=== PATIENT | male | born 1995 | race Caucasian/White ===

== ENCOUNTER 2019-07-16 11:29 | Emergency (ER) | payer OTHER ==
--- NOTE | 2019-07-16 11:37 | ERPHSYRPT ---
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 between a metal plate and concrete wall, meatal bleeding controlled, no other injury, ambulatory, no blood thinners, mild to mod ache pain Allergies/Adverse Reactions: Penicillins Allergy (Verified 07/16/19 11:43) Hx Tetanus, Diphtheria Vaccination/Date Given: Yes Hx Influenza Vaccination/Date Given: No Hx Pneumococcal Vaccination/Date Given: No - Past Medical History Pertinent Past Medical History: Yes Respiratory History: Asthma Musculoskeletal History: Other (pectus excavatum) Other Medical History: CONCAVE CHEST, updated 07/17/15 - Past Surgical History Past Surgical History: Yes Other Surgical History: LEFT ARM, JAW - two metal plates in left arm - Social History Smoking Status: Never smoker Exposure to second hand smoke: No Drug Use: none Patient Lives Alone: No - Review of Systems Constitutional: No Fever Respiratory: No Dyspnea Abdominal/Gastrointestinal: No Abdominal Pain Genitourinary Symptoms: No Testicle Pain Musculoskeletal: No Back Pain Neurological: No Dizziness - Nursing Vital Signs Nursing Vital Signs: Initial Vital Signs Temperature 98.2 F 07/16/19 11:32 Pulse Rate 81 07/16/19 11:32 Respiratory Rate 18 07/16/19 11:32 Blood Pressure 141/88 07/16/19 11:32 O2 Sat by Pulse Oximetry 98 07/16/19 11:32 Pain Scale Pain Intensity 9 - Physical Exam General Appearance: no apparent distress Eye Exam: eyes nml inspection Neck Exam: normal inspection Respiratory Exam: No respiratory distress Cardiovascular Exam: regular rate/rhythm Gastrointestinal/Abdomen Exam: soft, No tenderness Male Genital Exam: circumcised, No scrotum tenderness (R), No scrotum tenderness (L), No testicular tenderness (R), No testicular tenderness (L), No hernia mass Extremity Exam: normal inspection Neurologic Exam: alert, oriented x 3, cooperative Skin Exam: other (sts glans of penis w/ blood in meatus and ecchymosis) - Course Nursing assessment & vital signs reviewed: Yes Ordered Tests: Active Orders 24 hr Category Date Time Status Saline Lock STAT Care 07/16/19 11:43 Ordered CBC W DIFF Stat Lab 07/16/19 11:44 Ordered CMP Stat Lab 07/16/19 11:44 Ordered UA W/RFX UR CULTURE Stat Lab 07/16/19 11:44 Uncollected Medication Summary Generic Name Dose Route Start Last Admin Trade Name Freq PRN Reason Stop Dose Admin Sodium Chloride 1,000 mls @ 999 mls/hr 07/16/19 11:44 Sodium Chloride 0.9% 1000 Ml IV 07/16/19 12:44 .Q1H1M STA Discontinued Medications Generic Name Dose Route Start Last Admin Trade Name Freq PRN Reason Stop Dose Admin Morphine Sulfate 4 mg 07/16/19 11:44 Morphine Sulfate 4 Mg Inj IV 07/16/19 11:45 STAT ONE - Progress Progress: unchanged Progress Note: 07/16/19 11:47 consult d/w Dr Marcos [phone] and pt transferred to [facility] for retrograde urethrogram, accepted by Dr Flor - Departure Departure Disposition: Transfer Clinical Impression: Traumatic blister of penis Qualifiers: Encounter type: initial encounter Qualified Code(s): S30.822A - Blister ( nonthermal) of penis, initial encounter Condition: Stable Critical Care Time: No Referrals: DOCTOR,NO FAMILY [Primary Care Provider] -
[2019-07-16 11:43] VITALS: O2SAT 98
[2019-07-16] MEDS ORDERED: Sodium Chloride 0.9% 1000 ML 1,000 ML IV STA (11:44)
[2019-07-16] MEDS ORDERED: MORPHINE SULFATE 4 MG INJ IV ONE (11:44)
[2019-07-16] MEDS ORDERED: Sodium Chloride 0.9% 1000 ML 1,000 ML ONE (12:00)
[2019-07-16] MEDS ORDERED: MORPHINE SULFATE 4 MG INJ ONE (12:00)
[2019-07-16 12:15] VITALS: BP 128/77; PULSE 72
[2019-07-16 12:25] LABS: Appearance SLIGHTLY CLOUDY (CLEAR); Bacteria RARE /HPF (NEGATIVE); Bilirubin NEGATIVE (NEGATIVE); Blood LARGE Ery/ul (0-5); Glucose NEGATIVE (NEGATIVE); Ketones TRACE (NEGATIVE); Leukocyte Esterase NEGATIVE (NEGATIVE); Mucus SLIGHT /HPF (NEGATIVE); Nitrite NEGATIVE (NEGATIVE); Protein,Urine Dip 30 (Negative); Specific Gravity 1.028 (1.005-1.025); Urobilinogen NEGATIVE mg/dL (0-1)
[2019-07-16 12:26] LABS: BASOPHIL % 0.3 % (0.0-0.4); Basophil (Absolute #) 0.02 (0-0.4); Eosinophil % 3.1 % (0.00-5.0); Granulocyte Absolute (ANC) 2.91 (1.4-6.9); Granulocytes % 44.8 % (36.0-66.0); Hematocrit 42.1 % (42-50); Hemoglobin 14.1 gm/dl (12.5-18.0); Lymphocyte (Absolute #) 2.48 (1.0-4.6); Lymphocytes % 38.2 % (24.0-44.0); Mean Cell Volume 90.5 fl (78-100); Mean Corpuscular Hemoglobin 30.3 pg (26-32); Mean Corpuscular Hgb Concent. 33.5 g/dl (32-36); Mean Platelet Volume 10.2 fl (6-9.5); Monocyte (Absolute #) 0.88 (0.0-1.3); Monocytes % 13.6 % (0.0-12.0); Platelet Count 221 K/mm3 (150-450); Red Blood Count 4.65 M/mm3 (4.1-5.6); White Blood Count 6.5 K/mm3 (4.0-10.5)
[2019-07-16 12:27] LABS: RBC >101 /HPF (0-2)
[2019-07-16 12:40] LABS: ALBUMIN 4.6 g/dL (3.5-5.0); ALKALINE PHOSPHATASE 46 U/L (38-126); ANION GAP 13.2 MEQ/L (5-15); BLOOD UREA NITROGEN 17 mg/dL (9-20); CHLORIDE 108 mmol/L (98-107); Calcium 9.3 mg/dL (8.4-10.2); Carbon Dioxide 26 mmol/L (22-30); Creatinine 1 0.91 mg/dL (0.66-1.25); Glucose 98 mg/dL (74-106); Potassium 4.2 mmol/L (3.5-5.1); SGOT/AST 35 U/L (17-59); SGPT/ALT 40 U/L (0-50); SODIUM 142 mmol/L (137-145)
== END 2019-07-16 12:54 | disposition short-term general hospital (02) ==
LOC: ED 11:29
DX: S30.822A Blister (nonthermal) of penis, initial encounter (principal); W23.1XXA Caught, crushed, jammed, or pinched between stationary objects, initial encounter
CPT/HCPCS: 36000; 36415; 80053; 81001; 85025; 87086; 96374; 99285; J2270

== ENCOUNTER 2022-12-05 11:06 | Emergency (ER) | payer OTHER ==
--- NOTE | 2022-12-05 12:21 | ERPHSYRPT ---
- History of Present Illness Source: patient, other () Exam Limitations: no limitations Patient Subjective Stated Complaint: Laceration Triage Nursing Assessment: Patient ambulated back to ED and transferred self to bed. Patient A+O X 3. Patient's skin pink, warm and dry. Patient states he was working on a roof when a razor blade slipped cutting his right hand 1st and 2nd digit. 1st digit noted to have 2 cm laceration and 2nd digit noted to have 0.5cm laceration. Patient complains of pain 5/10 to area. Physician History: 27 yo WM laceration R proximal 1st digit ventral aspect and R 2nd digit on the ventral aspect. Lacerations occurred before arrival at work due to a hand box folder. Pt is L handed and denies other injuries at this time. Tetanus is UTD. Arrived w good hemostasis, good distal capillary return and sensation in all digits, and good radial pulses B. Pt is left handed. 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) Quality: constant Severity of Pain-Max: moderate Severity of Pain-Current: mild Extremities Pain Location: hand: right, thumb: right, 2nd finger: right Allergies/Adverse Reactions: Penicillins Allergy (Verified 12/05/22 11:19) Hx Tetanus, Diphtheria Vaccination/Date Given: Yes Hx Influenza Vaccination/Date Given: No Hx Pneumococcal Vaccination/Date Given: No Immunizations Up to Date: Yes Travel Risk - International Travel Have you traveled outside of the country in past 3 weeks: No - Coronavirus Screening Are you exhibiting any of the following symptoms?: No Close contact with a COVID-19 positive Pt in past 14-21 Days: No - Vaccine Status Have you recieved a Covid-19 vaccination: No - Review of Systems Constitutional: No Symptoms Eyes: No Symptoms Ears, Nose, & Throat: No Symptoms Respiratory: No Symptoms Cardiac: No Symptoms Abdominal/Gastrointestinal: No Symptoms Genitourinary Symptoms: No Symptoms Skin: No Symptoms Neurological: No Symptoms Psychological: No Symptoms Endocrine: No Symptoms Hematologic/Lymphatic: No Symptoms Immunological/Allergic: No Symptoms - Past Medical History Pertinent Past Medical History: Yes Respiratory History: Asthma Musculoskeletal History: Other Other Medical History: CONCAVE CHEST, updated 07/17/15 - Past Surgical History Past Surgical History: Yes Other Surgical History: LEFT ARM, JAW - two metal plates in left arm - Social History Smoking Status: Never smoker Exposure to second hand smoke: No Drug Use: none Patient Lives Alone: No - Nursing Vital Signs Nursing Vital Signs: Initial Vital Signs Temperature 97.6 F 12/05/22 11:21 Pulse Rate 98 H 12/05/22 11:21 Respiratory Rate 18 12/05/22 11:21 Blood Pressure 144/92 12/05/22 11:21 O2 Sat by Pulse Oximetry 95 12/05/22 11:21 Pain Scale Pain Intensity 3 Hypertensive - Physical Exam General Appearance: no apparent distress Eyes, Ears, Nose, Throat Exam: normal ENT inspection, TMs normal, pharynx normal, moist mucous membranes Neck Exam: normal inspection, non-tender, supple, full range of motion, No Brudzinski, No Kernig's, No meningismus, No carotid bruit Cardiovascular/Respiratory Exam: normal breath sounds, regular rate/rhythm, heart sounds normal Abdominal Exam: non-tender, soft Back Exam: normal inspection Shoulder Exam: normal inspection Elbow/Forearm Exam: normal inspection Wrist Exam: normal inspection Hand Exam: laceration (2cm ventral, proximal laceration/good hemostasis/FROM wo difficulty/Good distal capillary return and sensation/Superficial avulsion R 2nd digit between PIP and DIP/Good hemostasis/Good distal capillary return and sensation) DTR - Upper Extremity Exam: bicep (R): 2+, bicep (L): 2+ Neuro/Tendon Exam: normal sensation, normal motor functions, normal tendon functions, responds to pain, no evidence tendon injury, No motor deficit, No sensory deficit Mental Status Exam: alert, oriented x 3, cooperative Skin Exam: normal color, warm, dry SpO2 Interpretation: normal SpO2: 95 O2 Delivery: Room Air Procedures - Laceration/Wound Repair Right Proximal Finger Time of Procedure: 12:18 Wound Location: Right (R proximal, ventral 1st digit) Wound Length (cm): 2 Wound's Depth, Shape: superficial, linear Wound Explored: clean Irrigated: No Hibiclens Prep: Yes Anesthesia: digital block, 1% Lidocaine Volume Anesthetic (ccs): 3 Wound Repaired With: sutures Suture Size/Type: 4-0 (4.0 Ethilon x4) Number of Sutures: 4 Layer Closure?: No Sterile Dressing Applied?: Yes Splint Applied?: No Right Dorsal Finger Time of Procedure: 12:20 Wound Location: Right (Dorsal 2nd digit) Wound Length (cm): 1 Wound's Depth, Shape: superficial (Avulsion) Wound Explored: clean Irrigated: No Hibiclens Prep: Yes Wound Repaired With: Steri-strips (Steri stripped per nursing/NVI) Sterile Dressing Applied?: Yes Splint Applied?: No - Course Nursing assessment & vital signs reviewed: Yes Ordered Tests: Medication Summary Discontinued Medications Generic Name Dose Route Start Last Admin Trade Name Lacho PRN Reason Stop Dose Admin Lidocaine HCl 2 ml 12/05/22 12:43 12/05/22 12:49 Lidocaine Hcl 1% 20 Ml Mdv 20 Ml Ml IJ 12/05/22 12:44 2 ml STAT ONE Administration Lidocaine HCl Confirm 12/05/22 12:44 Lidocaine Hcl 1% 20 Ml Mdv 20 Ml Ml Administered 12/05/22 12:45 Dose 2 ml .ROUTE .STK-MED ONE - Progress Progress: improved Progress Note: 12/05/22 12:30 Nursing note and vital signs reviewed Pt up to date on his Tdap R 1st digit laceration repaired wo complications per ER physician R 2nd digit avulsion steri-stripped per nursing/NVI No food or housing insecurities Pt to start Doxycyclien twice a day for 1 week 12/05/22 15:02 12/05/22 15:03 Counseled pt/family regarding: diagnosis, need for follow-up - Departure Departure Disposition: Home Clinical Impression: Finger laceration Condition: Stable Critical Care Time: No Referrals: KARINA EASLEY MD [Primary Care Provider] - Follow up/PCP as directed Instructions: Wound Care (DC), Laceration Repair With Stitches (DC) Additional Instructions: Keep lacerations dry for 2 days, then gently wash 1-2 times a day with soap/water gently Watch for signs of infection-increasing redness/increasing pain/temperature greater than 100.5/increasing swelling Sutures out in 10 days Doxycycline twice a day for 7 days Forms: Work/School Release Form Prescriptions: Doxycycline Monohydrate 100 mg PO BID #14 cap
[2022-12-05 12:33] VITALS: BP 125/72; PULSE 62
[2022-12-05 12:35] VITALS: O2SAT 95
[2022-12-05] MEDS ORDERED: XYLOCAINE 1% HCL 20 ML MDV IJ ONE (12:43)
[2022-12-05] MEDS ORDERED: XYLOCAINE 1% HCL 20 ML MDV ONE (12:44)
== END 2022-12-05 12:51 | disposition home or self-care (01) ==
LOC: ED 11:06
DX: S61.011A Laceration without foreign body of right thumb without damage to nail, initial encounter (principal); S61.210A Laceration without foreign body of right index finger without damage to nail, initial encounter; W26.0XXA Contact with knife, initial encounter; Y93.H3 Activity, building and construction; Y99.0 Civilian activity done for income or pay; Z28.310 Unvaccinated for COVID-19
CPT/HCPCS: 12001; 99283